=== PATIENT | female | born 1935 | race Caucasian/White ===

== ENCOUNTER → 2016-06-26 | Outpatient (CLI) | payer MEDICARE ==
[~2016-06-26] MED LIST: CEPH500C PO; GUAI473L8 PO; METO-270 PO; NADO20TA; NORT25CA PO; PRED5TAB PO; SULF500T PO
[2016-06-26 08:21] LABS: BASOPHILS % (AUTO) 1 % (0-2); EOSINOPHILS % (AUTO) 0 % (0-4); LYMPHOCYTES # (AUTO) 1.1 X10^3; MEAN CORPUSCULAR HEMOGLOBIN 28.4 PG (26.0-34.0); MEAN CORPUSCULAR HGB CONC 31.9 g/dL (31.0-37.0); MEAN CORPUSCULAR VOLUME 89 FL (80-100); MEAN PLATELET VOLUME 10.3 FL (6.0-9.5); MONOCYTES # (AUTO) 0.7 X10^3; MONOCYTES % (AUTO) 13 % (3-11); NEUTROPHILS # (AUTO) 3.8 X10^3; NEUTROPHILS % (AUTO) 67 % (51-67); PLATELET COUNT 193 10^3uL (150-450); WHITE BLOOD COUNT 5.73 10^3uL (4.0-11.0)
[2016-06-26 08:42] LABS: CLARITY,URINE Clear; GLUCOSE, URINE (UA) Negative (Negative); LEUKOCYTE ESTERASE ,URINE 1+ (Negative); PH,URINE 5.5 (5.0 - 8.0); UROBILINOGEN,URINE 0.2 mg/dL (0.2-1.0)
[2016-06-26 08:43] LABS: BILIRUBIN,URINE 1+ (Negative); COLOR,URINE Dark Yellow
[2016-06-26 08:46] LABS: URINE CENTRIFUGED VOLUME <10mL Unspun
[2016-06-26 08:47] LABS: RBC,URINE None Seen /HPF
[2016-06-26 09:01] LABS: ALBUMIN 4.1 g/dL (3.4-5.0); ANION GAP 16.1 MEQ/L (3-15); CALCULATED IONIZED CALCIUM 4.5 mg/dL (3.8-4.6); TOTAL PROTEIN 6.3 g/dL (6.4-8.5)
--- NOTE | 2016-06-26 09:01 | Diagnostic Imaging Report ---
INDICATION: Atrial fibrillation. Physical exam. Study compared 02/22/2015. FINDINGS: Some chronic scarring in the lung bases the previous acute infiltrate in the lower lobes has resolved. No adverse development. No effusion or pneumothorax. Heart size upper limit stable. Some thickening of the mildly ectatic central airways chronic. IMPRESSION: Resolution of pneumonia, chronic air trapping, bronchiectasis and airway thickening all unchanged and no acute finding. Dictated by: Dictated on workstation # [id number]
== END ==
LOC: RT 08:00
PROVIDERS: ATTEND Family Medicine
DX: I48.1 Persistent atrial fibrillation (principal); R79.89 Other specified abnormal findings of blood chemistry; E78.2 Mixed hyperlipidemia; D50.8 Other iron deficiency anemias; R82.99 Other abnormal findings in urine; N39.0 Urinary tract infection, site not specified; E13.65 Other specified diabetes mellitus with hyperglycemia; E03.4 Atrophy of thyroid (acquired); M81.0 Age-related osteoporosis without current pathological fracture
CPT/HCPCS: 36415; 71020; 80053; 80061; 81003; 81015; 82306; 83036; 84436; 84443; 85025; 87088; 93005